=== PATIENT | female | born 1935 | race Caucasian/White ===

== ENCOUNTER 2024-01-04 19:45 | Emergency (ER) | payer OTHER ==
[2024-01-04 19:53] VITALS: BP 129/68; PULSE 70; RESP 18; TEMP 97.7; BMI 21.4
[2024-01-04 23:55] LABS: BASO % 0.7 % (0-2.0); EOS % 1.7 % (0-4.5); HEMATOCRIT 28.4 % (32.4-45.2); HEMOGLOBIN 9.6 GM/dL (10.7-15.3); LYMPH % 10.2 % (8-40); MCH 28.1 pg (25.7-33.7); MCHC 33.7 g/dl (32.0-36.0); MEAN CELL VOLUME 83.2 fl (80-96); MEAN PLT VOLUME 7.3 fl (7.5-11.1); MONO % 8.9 % (3.8-10.2); NEUT % 78.5 % (42.8-82.8); PLATELET COUNT 388 10^3/uL (134-434); RBC 3.42 M/mm3 (3.60-5.2); RDW 14.6 % (11.6-15.6); WHITE BLOOD COUNT 16.3 K/mm3 (4.0-10.0)
[2024-01-05 00:18] LABS: POTASSIUM 4.4 mmol/L (3.5-5.1)
[2024-01-05 00:20] LABS: ALBUMIN 2.7 g/dl (3.4-5.0); BLOOD UREA NITROGEN 20.2 mg/dL (7-18)
[2024-01-05 00:23] LABS: CREATININE 1.1 mg/dL (0.55-1.3)
[2024-01-05 00:25] LABS: BILIRUBIN,TOTAL 0.4 mg/dL (0.2-1); TOT PROT 7.2 g/dl (6.4-8.2)
[2024-01-05 00:28] LABS: N-TERMINAL BNP 1309.9 pg/ml (5-450)
== END 2024-01-05 01:17 | disposition home or self-care (01) ==
LOC: JER 19:45
DX: R53.1 Weakness (principal); M79.89 Other specified soft tissue disorders; R23.1 Pallor
CPT/HCPCS: 36415; 80053; 83880; 84484; 85025; 93970-TC; 99284-25

== ENCOUNTER 2024-01-17 23:59 | Inpatient (IN) | payer OTHER ==
[2024-01-18 01:53] LABS: BASO % 0.5 % (0-2.0); EOS % 1.7 % (0-4.5); HEMATOCRIT 25.7 % (32.4-45.2); HEMOGLOBIN 8.6 GM/dL (10.7-15.3); LYMPH % 9.1 % (8-40); MCHC 33.6 g/dl (32.0-36.0); MEAN CELL VOLUME 83.3 fl (80-96); MEAN PLT VOLUME 7.6 fl (7.5-11.1); NEUT % 80.7 % (42.8-82.8); PLATELET COUNT 324 10^3/uL (134-434); RBC 3.08 M/mm3 (3.60-5.2); RDW 14.9 % (11.6-15.6); WHITE BLOOD COUNT 14.2 K/mm3 (4.0-10.0)
[2024-01-18 02:13] LABS: POTASSIUM 4.6 mmol/L (3.5-5.1)
[2024-01-18 02:15] LABS: ALBUMIN 2.5 g/dl (3.4-5.0); BLOOD UREA NITROGEN 24.8 mg/dL (7-18); CALCIUM 9.1 mg/dL (8.5-10.1)
[2024-01-18 02:18] LABS: CREATININE 1.5 mg/dL (0.55-1.3)
[2024-01-18 02:20] LABS: BILIRUBIN,TOTAL 0.3 mg/dL (0.2-1); TOT PROT 6.5 g/dl (6.4-8.2)
[2024-01-18] MEDS ORDERED: FUROSEMIDE 40 MG/4 ML INJECTABLE VIAL ONE ×3 (02:48→15:27)
[2024-01-18] MEDS: FUROSEMIDE 40 MG/4 ML INJECTABLE VIAL IVPUSH ONE (02:57)
[2024-01-18 03:42] LABS: EPI CELLS 1 /uL (0-25.1); HYALINE CASTS 1 /uL (0-3.1); PH,URINE 5.5 (5.0-8.0); URINE APPEARANCE CLOUDY; URINE BACTERIA 1099 /uL (0-1359); URINE BILIRUBIN NEGATIVE (NEGATIVE); URINE COLOR YELLOW; URINE GLUCOSE (UA) NEGATIVE (NEGATIVE); URINE KETONE NEGATIVE (NEGATIVE); URINE LEUK ESTERASE 3+ (NEGATIVE); URINE NITRITE NEGATIVE (NEGATIVE); URINE PROTEIN 2+ (NEGATIVE); URINE RBC 38 /uL (0-23.9); URINE UROBILINOGEN 0.2 mg/dL (0.2-1.0); URINE WBC 910 /uL (0-25.8)
[2024-01-18] MEDS ORDERED: CEFTRIAXONE 1 GM/50 ML BAG ONE ×2 (04:14→10:33)
[2024-01-18 07:47] LABS: BASO % 0.6 % (0-2.0); EOS % 1.9 % (0-4.5); HEMATOCRIT 26.5 % (32.4-45.2); LYMPH % 9.1 % (8-40); MCH 28.2 pg (25.7-33.7); MCHC 34.1 g/dl (32.0-36.0); MEAN CELL VOLUME 82.6 fl (80-96); MEAN PLT VOLUME 7.6 fl (7.5-11.1); MONO % 7.5 % (3.8-10.2); NEUT % 80.9 % (42.8-82.8); PLATELET COUNT 325 10^3/uL (134-434); RDW 14.9 % (11.6-15.6); RETICULOCYTES 0.79 % (0.5-1.5); WHITE BLOOD COUNT 12.3 K/mm3 (4.0-10.0)
[2024-01-18 07:55] LABS: POTASSIUM 4.2 mmol/L (3.5-5.1)
[2024-01-18] MEDS: FUROSEMIDE 40 MG/4 ML INJECTABLE VIAL IVPUSH SCH (08:01)
[2024-01-18 08:04] LABS: ALBUMIN 2.5 g/dl (3.4-5.0); MAGNESIUM 1.9 mg/dL (1.8-2.4)
[2024-01-18 08:05] LABS: BLOOD UREA NITROGEN 22.4 mg/dL (7-18)
[2024-01-18 08:07] LABS: CREATININE 1.3 mg/dL (0.55-1.3); PHOSPHOROUS 3.1 mg/dL (2.5-4.9)
[2024-01-18 08:09] LABS: BILIRUBIN,TOTAL 0.4 mg/dL (0.2-1); TOT PROT 6.5 g/dl (6.4-8.2)
[2024-01-18] MEDS ORDERED: FUROSEMIDE 40 MG/4 ML INJECTABLE VIAL IVPUSH SCH (10:00)
[2024-01-18] MEDS ORDERED: METOPROLOL TARTRATE 25 MG TABLET (FP) ONE (10:33)
[2024-01-18] MEDS: CEFTRIAXONE 1 GM in DEXTROSE 5%-WATER - 50 ML IVPB SCH (11:12)
[2024-01-18] MEDS: METOPROLOL TARTRATE 25 MG TABLET (FP) PO SCH (11:12)
[2024-01-18] MEDS ORDERED: ONDANSETRON 4 MG/2 ML VIAL IVPUSH PRN (17:45)
[2024-01-19 09:50] LABS: HEMATOCRIT 28.7 % (32.4-45.2); HEMOGLOBIN 9.6 GM/dL (10.7-15.3); MCH 27.7 pg (25.7-33.7); MCHC 33.5 g/dl (32.0-36.0); MEAN CELL VOLUME 82.7 fl (80-96); MEAN PLT VOLUME 7.3 fl (7.5-11.1); PLATELET COUNT 337 10^3/uL (134-434); RBC 3.47 M/mm3 (3.60-5.2); RDW 15.1 % (11.6-15.6); WHITE BLOOD COUNT 14.1 K/mm3 (4.0-10.0)
[2024-01-19 10:14] LABS: POTASSIUM 3.2 mmol/L (3.5-5.1)
[2024-01-19 10:25] LABS: BLOOD UREA NITROGEN 20.5 mg/dL (7-18)
[2024-01-19 10:26] LABS: MAGNESIUM 1.9 mg/dL (1.8-2.4)
[2024-01-19 10:28] LABS: CREATININE 1.3 mg/dL (0.55-1.3); PHOSPHOROUS 3.2 mg/dL (2.5-4.9)
[2024-01-19] MEDS: POTASSIUM CHLORIDE TABS 20 MEQ TABLET.ER (FP) PO ONE (17:59)
[2024-01-19] MEDS: NAPH,MB-DB/K PH,MBDB POWDER PACKET PO ONE (19:06)
[2024-01-20 09:23] LABS: HEMATOCRIT 28.3 % (32.4-45.2); HEMOGLOBIN 9.5 GM/dL (10.7-15.3); MCH 27.7 pg (25.7-33.7); MCHC 33.5 g/dl (32.0-36.0); MEAN CELL VOLUME 82.7 fl (80-96); MEAN PLT VOLUME 7.4 fl (7.5-11.1); PLATELET COUNT 328 10^3/uL (134-434); RBC 3.42 M/mm3 (3.60-5.2); WHITE BLOOD COUNT 11.6 K/mm3 (4.0-10.0)
[2024-01-20 09:33] LABS: POTASSIUM 3.4 mmol/L (3.5-5.1)
[2024-01-20 09:38] LABS: CALCIUM 8.6 mg/dL (8.5-10.1)
[2024-01-20 09:39] LABS: ALBUMIN 2.4 g/dl (3.4-5.0); BLOOD UREA NITROGEN 22.4 mg/dL (7-18); MAGNESIUM 1.9 mg/dL (1.8-2.4)
[2024-01-20 09:42] LABS: CREATININE 1.2 mg/dL (0.55-1.3); PHOSPHOROUS 3.3 mg/dL (2.5-4.9)
[2024-01-20 09:43] LABS: BILIRUBIN,TOTAL 0.5 mg/dL (0.2-1)
[2024-01-20 09:44] LABS: TOT PROT 6.5 g/dl (6.4-8.2)
[2024-01-20] MEDS: POTASSIUM CHLORIDE TABS 20 MEQ TABLET.ER (FP) PO ONE (16:08)
[2024-01-21 09:49] LABS: HEMATOCRIT 27.8 % (32.4-45.2); HEMOGLOBIN 9.3 GM/dL (10.7-15.3); MCH 27.7 pg (25.7-33.7); MCHC 33.5 g/dl (32.0-36.0); MEAN CELL VOLUME 82.9 fl (80-96); MEAN PLT VOLUME 7.7 fl (7.5-11.1); PLATELET COUNT 327 10^3/uL (134-434); RBC 3.35 M/mm3 (3.60-5.2); WHITE BLOOD COUNT 14.3 K/mm3 (4.0-10.0)
[2024-01-21 10:37] LABS: POTASSIUM 3.6 mmol/L (3.5-5.1)
[2024-01-21 10:42] LABS: ALBUMIN 2.4 g/dl (3.4-5.0); BLOOD UREA NITROGEN 21.5 mg/dL (7-18); CALCIUM 8.4 mg/dL (8.5-10.1)
[2024-01-21 10:44] LABS: MAGNESIUM 1.7 mg/dL (1.8-2.4)
[2024-01-21 10:47] LABS: CREATININE 1.2 mg/dL (0.55-1.3); PHOSPHOROUS 2.8 mg/dL (2.5-4.9)
[2024-01-21 10:48] LABS: BILIRUBIN,TOTAL 0.4 mg/dL (0.2-1)
[2024-01-21 10:49] LABS: TOT PROT 6.6 g/dl (6.4-8.2)
[2024-01-21] MEDS ORDERED: PIPERACILLIN/TAZOB 2.25 GM 2.25 GM in DEXTROSE 5%-WATER - 50 ML IVPB SCH (19:45)
[2024-01-21] MEDS: PIPERACILLIN/TAZOB 2.25 GM 2.25 GM in DEXTROSE 5%-WATER - 50 ML IVPB SCH (20:09)
[2024-01-21] MEDS: MAGNESIUM 1GM/D5W - 1 GM/100 ML IVPB IVPB ONE (20:53)
[2024-01-22 10:16] LABS: HEMATOCRIT 26.8 % (32.4-45.2); HEMOGLOBIN 8.9 GM/dL (10.7-15.3); MCHC 33.4 g/dl (32.0-36.0); MEAN CELL VOLUME 83.7 fl (80-96); MEAN PLT VOLUME 7.6 fl (7.5-11.1); PLATELET COUNT 308 10^3/uL (134-434); RDW 15.1 % (11.6-15.6); WHITE BLOOD COUNT 13.7 K/mm3 (4.0-10.0)
[2024-01-22 10:21] LABS: POTASSIUM 3.3 mmol/L (3.5-5.1)
[2024-01-22 10:26] LABS: ALBUMIN 2.2 g/dl (3.4-5.0); BLOOD UREA NITROGEN 21.2 mg/dL (7-18); CALCIUM 8.6 mg/dL (8.5-10.1); MAGNESIUM 2.3 mg/dL (1.8-2.4)
[2024-01-22 10:30] LABS: CREATININE 1.4 mg/dL (0.55-1.3); PHOSPHOROUS 3.1 mg/dL (2.5-4.9)
[2024-01-22 10:32] LABS: BILIRUBIN,TOTAL 0.3 mg/dL (0.2-1)
[2024-01-22 10:34] LABS: TOT PROT 5.9 g/dl (6.4-8.2)
[2024-01-22] MEDS: LIDOCAINE 4% PATCH TP SCH (11:50)
[2024-01-22] MEDS: PIPERACILLIN/TAZOB 3.375 GM 3.375 GM in DEXTROSE 5%-WATER - 50 ML IVPB SCH (17:21)
[2024-01-22] MEDS: IRON SUCROSE INJECTION 100 MG in SODIUM CHLORIDE 95 ML IVPB ONE (18:21)
[2024-01-22] MEDS: POTASSIUM CHLORIDE TABS 20 MEQ TABLET.ER (FP) PO ONE (18:34)
[2024-01-22] MEDS: LIDOCAINE PATCH REMOVAL MC SCH (21:08)
[2024-01-23 08:45] LABS: HEMATOCRIT 27.4 % (32.4-45.2); MCH 27.7 pg (25.7-33.7); MCHC 32.9 g/dl (32.0-36.0); MEAN PLT VOLUME 7.4 fl (7.5-11.1); PLATELET COUNT 332 10^3/uL (134-434); RBC 3.26 M/mm3 (3.60-5.2); RDW 15.2 % (11.6-15.6); WHITE BLOOD COUNT 14.6 K/mm3 (4.0-10.0)
[2024-01-23 08:56] LABS: POTASSIUM 4.4 mmol/L (3.5-5.1)
[2024-01-23 09:04] LABS: ALBUMIN 2.2 g/dl (3.4-5.0)
[2024-01-23 09:05] LABS: BLOOD UREA NITROGEN 21.4 mg/dL (7-18); MAGNESIUM 2.5 mg/dL (1.8-2.4)
[2024-01-23 09:07] LABS: CREATININE 1.5 mg/dL (0.55-1.3); PHOSPHOROUS 3.6 mg/dL (2.5-4.9)
[2024-01-23 09:08] LABS: BILIRUBIN,TOTAL 0.4 mg/dL (0.2-1)
[2024-01-24 10:03] LABS: BASO % 0.6 % (0-2.0); HEMATOCRIT 27.3 % (32.4-45.2); HEMOGLOBIN 9.1 GM/dL (10.7-15.3); LYMPH % 11.8 % (8-40); MCH 27.8 pg (25.7-33.7); MCHC 33.4 g/dl (32.0-36.0); MEAN CELL VOLUME 83.4 fl (80-96); MEAN PLT VOLUME 7.6 fl (7.5-11.1); MONO % 8.5 % (3.8-10.2); NEUT % 76.1 % (42.8-82.8); PLATELET COUNT 335 10^3/uL (134-434); RBC 3.28 M/mm3 (3.60-5.2); RDW 15.8 % (11.6-15.6); WHITE BLOOD COUNT 12.7 K/mm3 (4.0-10.0)
[2024-01-24 10:23] LABS: POTASSIUM 4.4 mmol/L (3.5-5.1)
[2024-01-24 10:28] LABS: CALCIUM 8.7 mg/dL (8.5-10.1)
[2024-01-24 10:29] LABS: ALBUMIN 2.2 g/dl (3.4-5.0)
[2024-01-24 10:32] LABS: CREATININE 1.5 mg/dL (0.55-1.3)
[2024-01-24 10:34] LABS: BILIRUBIN,TOTAL 0.4 mg/dL (0.2-1); TOT PROT 6.4 g/dl (6.4-8.2)
[2024-01-24 16:06] LABS: URINE APPEARANCE TURBID; URINE COLOR YELLOW
[2024-01-24 16:07] LABS: URINE BILIRUBIN NEGATIVE (NEGATIVE); URINE GLUCOSE (UA) NEGATIVE (NEGATIVE); URINE KETONE NEGATIVE (NEGATIVE); URINE LEUK ESTERASE 4+ (NEGATIVE); URINE NITRITE NEGATIVE (NEGATIVE); URINE PROTEIN 1+ (NEGATIVE); URINE UROBILINOGEN 0.2 mg/dL (0.2-1.0)
[2024-01-24] MEDS: HEPARIN NA (PORCINE) 5,000 UNITS/ML 1ML VIAL SQ SCH (22:24)
[2024-01-25 09:48] LABS: HEMATOCRIT 29.7 % (32.4-45.2); HEMOGLOBIN 9.7 GM/dL (10.7-15.3); MCH 27.3 pg (25.7-33.7); MCHC 32.6 g/dl (32.0-36.0); MEAN CELL VOLUME 83.8 fl (80-96); MEAN PLT VOLUME 7.4 fl (7.5-11.1); PLATELET COUNT 390 10^3/uL (134-434); RBC 3.54 M/mm3 (3.60-5.2); RDW 15.6 % (11.6-15.6); WHITE BLOOD COUNT 15.1 K/mm3 (4.0-10.0)
[2024-01-25 10:16] LABS: POTASSIUM 4.4 mmol/L (3.5-5.1)
[2024-01-25 10:18] LABS: ALBUMIN 2.4 g/dl (3.4-5.0); BLOOD UREA NITROGEN 22.3 mg/dL (7-18); CALCIUM 9.1 mg/dL (8.5-10.1)
[2024-01-25 10:21] LABS: CREATININE 1.4 mg/dL (0.55-1.3)
[2024-01-25 10:23] LABS: BILIRUBIN,TOTAL 0.4 mg/dL (0.2-1); TOT PROT 6.8 g/dl (6.4-8.2)
[2024-01-25 14:24] VITALS: BMI 19.1
[2024-01-25] MEDS: SODIUM CHLORIDE 1,000 ML IV SCH (15:15)
[2024-01-25] MEDS: ACETAMINOPHEN 500 MG TABLET (FP) PO PRN (21:21)
[2024-01-25] MEDS: MELATONIN 5 MG TABLETS PO PRN (21:22)
[2024-01-26] MEDS ORDERED: SODIUM CHLORIDE 500 ML IV PRN (08:29)
[2024-01-26 09:46] LABS: HEMATOCRIT 27.8 % (32.4-45.2); HEMOGLOBIN 9.3 GM/dL (10.7-15.3); MCH 28.3 pg (25.7-33.7); MCHC 33.5 g/dl (32.0-36.0); MEAN CELL VOLUME 84.3 fl (80-96); MEAN PLT VOLUME 7.6 fl (7.5-11.1); PLATELET COUNT 340 10^3/uL (134-434); RBC 3.29 M/mm3 (3.60-5.2); RDW 16.2 % (11.6-15.6); WHITE BLOOD COUNT 10.7 K/mm3 (4.0-10.0)
[2024-01-26 09:58] LABS: POTASSIUM 3.9 mmol/L (3.5-5.1)
[2024-01-26 10:06] LABS: ALBUMIN 2.1 g/dl (3.4-5.0); BLOOD UREA NITROGEN 20.6 mg/dL (7-18); CALCIUM 8.5 mg/dL (8.5-10.1)
[2024-01-26 10:07] LABS: MAGNESIUM 2.3 mg/dL (1.8-2.4)
[2024-01-26 10:10] LABS: PHOSPHOROUS 3.6 mg/dL (2.5-4.9)
[2024-01-26 10:11] LABS: BILIRUBIN,TOTAL 0.4 mg/dL (0.2-1); TOT PROT 5.8 g/dl (6.4-8.2)
[2024-01-26 10:19] LABS: CREATININE 1.2 mg/dL (0.55-1.3)
[2024-01-27 10:25] LABS: HEMATOCRIT 25.5 % (32.4-45.2); HEMOGLOBIN 8.4 GM/dL (10.7-15.3); MCH 27.7 pg (25.7-33.7); MEAN PLT VOLUME 7.2 fl (7.5-11.1); PLATELET COUNT 326 10^3/uL (134-434); RBC 3.04 M/mm3 (3.60-5.2); RDW 16.3 % (11.6-15.6); WHITE BLOOD COUNT 14.4 K/mm3 (4.0-10.0)
[2024-01-27 10:44] LABS: POTASSIUM 4.2 mmol/L (3.5-5.1)
[2024-01-27 10:55] LABS: BLOOD UREA NITROGEN 18.2 mg/dL (7-18)
[2024-01-27 10:56] LABS: CALCIUM 8.5 mg/dL (8.5-10.1)
[2024-01-27 10:57] LABS: MAGNESIUM 2.1 mg/dL (1.8-2.4)
[2024-01-27 10:58] LABS: CREATININE 0.9 mg/dL (0.55-1.3); PHOSPHOROUS 2.9 mg/dL (2.5-4.9)
[2024-01-27 11:00] LABS: BILIRUBIN,TOTAL 0.3 mg/dL (0.2-1); TOT PROT 5.6 g/dl (6.4-8.2)
[2024-01-27] MEDS ORDERED: ONDANSETRON 4 MG/2 ML VIAL ONE ×2 (15:57→16:11)
[2024-01-27] MEDS ORDERED: ACETAMINOPHEN INJECTION 100 ML IVPB ONE (16:00)
[2024-01-27] MEDS ORDERED: MIDAZOLAM HCL 2 MG/2 ML SINGLE DOSE VIAL ONE (16:15)
[2024-01-27] MEDS ORDERED: SUCCINYLCHOLINE CHLORIDE 200 MG/10 ML SYRINGE ONE (16:20)
[2024-01-27] MEDS ORDERED: LACTATED RINGERS SOLUTION 1,000 ML IV SCH (17:00)
[2024-01-27] MEDS ORDERED: ONDANSETRON 4 MG/2 ML VIAL IVPUSH PRN (18:04)
[2024-01-27] MEDS ORDERED: SODIUM CHLORIDE 500 ML IV PRN (18:04)
[2024-01-27] MEDS: LACTATED RINGERS SOLUTION 1,000 ML IV SCH (18:10)
[2024-01-27 18:37] VITALS: RESP 18
[2024-01-27] MEDS: LIDOCAINE PATCH REMOVAL MC SCH (21:33)
[2024-01-27] MEDS: METOPROLOL TARTRATE 25 MG TABLET (FP) PO SCH (21:33)
[2024-01-27] MEDS: ACETAMINOPHEN 500 MG TABLET (FP) PO PRN (21:35)
[2024-01-27] MEDS: MELATONIN 5 MG TABLETS PO PRN (21:35)
[2024-01-27] MEDS ORDERED: LIDOCAINE PATCH REMOVAL MC SCH (22:00)
[2024-01-28] MEDS: PIPERACILLIN/TAZOB 3.375 GM 3.375 GM in DEXTROSE 5%-WATER - 50 ML IVPB SCH (02:26)
[2024-01-28 08:29] VITALS: BP 131/62; PULSE 78; TEMP 97.9
[2024-01-28] MEDS: LIDOCAINE 4% PATCH TP SCH (09:17)
[2024-01-28 10:24] LABS: HEMATOCRIT 25.4 % (32.4-45.2); HEMOGLOBIN 8.2 GM/dL (10.7-15.3); MCH 27.8 pg (25.7-33.7); MCHC 32.2 g/dl (32.0-36.0); MEAN CELL VOLUME 86.2 fl (80-96); MEAN PLT VOLUME 7.7 fl (7.5-11.1); PLATELET COUNT 317 10^3/uL (134-434); RBC 2.95 M/mm3 (3.60-5.2); RDW 16.2 % (11.6-15.6)
[2024-01-28 10:34] LABS: POTASSIUM 4.7 mmol/L (3.5-5.1)
[2024-01-28 10:36] LABS: ALBUMIN 1.9 g/dl (3.4-5.0); BLOOD UREA NITROGEN 15.3 mg/dL (7-18); CALCIUM 8.4 mg/dL (8.5-10.1); MAGNESIUM 2.1 mg/dL (1.8-2.4)
[2024-01-28 10:39] LABS: CREATININE 1.1 mg/dL (0.55-1.3)
[2024-01-28 10:40] LABS: PHOSPHOROUS 3.4 mg/dL (2.5-4.9)
[2024-01-28 10:41] LABS: BILIRUBIN,TOTAL 0.4 mg/dL (0.2-1); TOT PROT 5.5 g/dl (6.4-8.2)
[2024-01-28] MEDS: HEPARIN NA (PORCINE) 5,000 UNITS/ML 1ML VIAL SQ SCH (13:41)
== END 2024-01-28 15:00 | disposition home or self-care (01) | DRG 749 ==
LOC: JER 23:59 → JERBED 01-18 04:29 → J6S 01-18 16:17
PROVIDERS: ADMIT Internal Medicine; ATTEND Internal Medicine
PROC: 0TBB8ZX Excision of Bladder, Via Natural or Artificial Opening Endoscopic, Diagnostic (ICD-10-PCS; 2024-01-27)
PROC: 0T9B80Z Drainage of Bladder with Drainage Device, Via Natural or Artificial Opening Endoscopic (ICD-10-PCS; principal; 2024-01-27 16:00)
DX: C53.9 Malignant neoplasm of cervix uteri, unspecified (principal); C77.9 Secondary and unspecified malignant neoplasm of lymph node, unspecified; E87.1 Hypo-osmolality and hyponatremia; N17.9 Acute kidney failure, unspecified; I50.32 Chronic diastolic (congestive) heart failure; N13.6 Pyonephrosis; I11.0 Hypertensive heart disease with heart failure; M81.0 Age-related osteoporosis without current pathological fracture; R31.9 Hematuria, unspecified; R33.9 Retention of urine, unspecified; I87.2 Venous insufficiency (chronic) (peripheral); I45.10 Unspecified right bundle-branch block; D64.9 Anemia, unspecified; R10.11 Right upper quadrant pain; E83.42 Hypomagnesemia; D50.0 Iron deficiency anemia secondary to blood loss (chronic)
CPT/HCPCS: 36415; 51600; 71045-TC-FY; 72196-TC; 74176-TC; 74177-TC; 76775-TC; 76856-TC; 80048; 80053; 81003; 81015; 82272; 82607; 82728; 83540; 83550; 83735; 83880; 84100; 84443; 84466; 84484; 85025; 85027; 85045; 87040; 87070; 87076; 87086; 87205; 88305-TC; 88341-TC; 93005; 93010; 93306-TC; 93971-TC; 94760; 97116-GP; 97161-GP; 99285-25; J0131; J1644; Q9967

== ENCOUNTER 2024-03-14 11:33 | Day surgery (SDC) | payer OTHER ==
[2024-03-14 12:32] LABS: BASO % 0.7 % (0-2.0); EOS % 0.3 % (0-4.5); HEMATOCRIT 27.6 % (32.4-45.2); HEMOGLOBIN 8.9 GM/dL (10.7-15.3); LYMPH % 6.1 % (8-40); MCH 27.7 pg (25.7-33.7); MCHC 32.3 g/dl (32.0-36.0); MEAN CELL VOLUME 85.9 fl (80-96); MEAN PLT VOLUME 7.3 fl (7.5-11.1); MONO % 5.2 % (3.8-10.2); NEUT % 87.7 % (42.8-82.8); PLATELET COUNT 332 10^3/uL (134-434); RBC 3.21 M/mm3 (3.60-5.2); RDW 15.7 % (11.6-15.6); WHITE BLOOD COUNT 16.5 K/mm3 (4.0-10.0)
[2024-03-14 13:05] LABS: CHLORIDE 97 mmol/L (98-107); SODIUM 129 mmol/L (136-145)
[2024-03-14 13:07] LABS: ALBUMIN 2.6 g/dl (3.4-5.0); ANION GAP 7 mmol/L (4-13); BLOOD UREA NITROGEN 17.7 mg/dL (7-18); CALCIUM 8.9 mg/dL (8.5-10.1); CO2 25 mmol/L (21-32); GLUCOSE,RANDOM 98 mg/dL (74-106); MAGNESIUM 2.2 mg/dL (1.8-2.4)
[2024-03-14 13:10] LABS: CREATININE 1.4 mg/dL (0.55-1.3); SGOT/AST 14 U/L (15-37); SGPT/ALT 11 U/L (13-61)
[2024-03-14 13:12] LABS: BILIRUBIN,TOTAL 0.3 mg/dL (0.2-1); TOT PROT 6.5 g/dl (6.4-8.2)
[2024-03-14 13:13] LABS: ALK PHOS 82 U/L (45-117)
[2024-03-14] MEDS: SODIUM CHLORIDE 250 ML IV ONE (14:31)
[2024-03-14] MEDS: DEXAMETHASONE SODIUM PHOSPHATE 10 MG in SODIUM CHLORIDE 50 ML IVPB ONE (14:55)
[2024-03-14] MEDS: GRANISETRON HCL/PF 1 MG in SODIUM CHLORIDE 50 ML IVPB ONE (15:13)
[2024-03-14] MEDS: [UNRECOGNIZED DRUG - OTHER] IVPB ONE (15:30)
[2024-03-14] MEDS: CISPLATIN IVPB ONE (15:30)
[2024-03-14] MEDS: POTASSIUM CHLORIDE IVPB ONE (15:30)
[2024-03-14] MEDS: MANNITOL IVPB ONE (15:30)
[2024-03-14 17:25] VITALS: BP 103/40; PULSE 67; RESP 16
[2024-03-14 18:07] VITALS: TEMP 97.4
== END 2024-03-14 16:45 | disposition home or self-care (01) ==
LOC: JONCCHEMO 11:33
PROVIDERS: ATTEND Internal Medicine Hematology & Oncology
DX: Z51.11 Encounter for antineoplastic chemotherapy (principal); C53.9 Malignant neoplasm of cervix uteri, unspecified
CPT/HCPCS: 36415; 80053; 83735; 85025; 93970-TC; 96413

== ENCOUNTER 2024-03-21 09:12 | Day surgery (SDC) | payer OTHER ==
[2024-03-21 09:14] LABS: BASO % 0.5 % (0-2.0); EOS % 2.4 % (0-4.5); HEMATOCRIT 26.1 % (32.4-45.2); HEMOGLOBIN 8.5 GM/dL (10.7-15.3); LYMPH % 10.8 % (8-40); MCH 28.1 pg (25.7-33.7); MCHC 32.7 g/dl (32.0-36.0); MEAN CELL VOLUME 85.9 fl (80-96); MEAN PLT VOLUME 6.8 fl (7.5-11.1); MONO % 9.3 % (3.8-10.2); PLATELET COUNT 304 10^3/uL (134-434); RBC 3.03 M/mm3 (3.60-5.2); RDW 14.9 % (11.6-15.6); WHITE BLOOD COUNT 6.5 K/mm3 (4.0-10.0)
[2024-03-21 09:31] LABS: CHLORIDE 94 mmol/L (98-107); POTASSIUM 4.8 mmol/L (3.5-5.1); SODIUM 126 mmol/L (136-145)
[2024-03-21 09:33] LABS: ALBUMIN 2.5 g/dl (3.4-5.0); ANION GAP 5 mmol/L (4-13); BLOOD UREA NITROGEN 14.5 mg/dL (7-18); CALCIUM 8.6 mg/dL (8.5-10.1); CO2 27 mmol/L (21-32); MAGNESIUM 2.2 mg/dL (1.8-2.4)
[2024-03-21 09:34] LABS: GLUCOSE,RANDOM 90 mg/dL (74-106)
[2024-03-21 09:36] LABS: SGOT/AST 12 U/L (15-37); SGPT/ALT 12 U/L (13-61)
[2024-03-21 09:37] LABS: CREATININE 0.8 mg/dL (0.55-1.3)
[2024-03-21 09:38] LABS: BILIRUBIN,TOTAL 0.3 mg/dL (0.2-1); TOT PROT 6.1 g/dl (6.4-8.2)
[2024-03-21 09:39] LABS: ALK PHOS 74 U/L (45-117)
[2024-03-21] MEDS: SODIUM CHLORIDE 250 ML IV ONE (10:45)
[2024-03-21] MEDS: DEXAMETHASONE SODIUM PHOSPHATE 10 MG in SODIUM CHLORIDE 50 ML IVPB ONE (11:23)
[2024-03-21] MEDS: GRANISETRON HCL/PF 1 MG in SODIUM CHLORIDE 50 ML IVPB ONE (11:57)
[2024-03-21] MEDS: [UNRECOGNIZED DRUG - OTHER] IVPB ONE (12:23)
[2024-03-21] MEDS: POTASSIUM CHLORIDE IVPB ONE (12:23)
[2024-03-21] MEDS: CISPLATIN IVPB ONE (12:23)
[2024-03-21] MEDS: MANNITOL IVPB ONE (12:23)
[2024-03-21 16:20] VITALS: BP 126/36; PULSE 64; RESP 18; TEMP 97.9
== END 2024-03-21 14:00 | disposition home or self-care (01) ==
LOC: JONCCHEMO 09:12 → J7W 09:13 → JONCCHEMO 14:00
PROVIDERS: ATTEND Internal Medicine Hematology & Oncology
DX: Z51.11 Encounter for antineoplastic chemotherapy (principal); C53.9 Malignant neoplasm of cervix uteri, unspecified
CPT/HCPCS: 36415; 80053; 83735; 85025; 96367; 96413

== ENCOUNTER 2024-03-28 08:57 | Day surgery (SDC) | payer OTHER ==
[2024-03-28 09:34] LABS: BASO % 0.3 % (0-2.0); EOS % 6.3 % (0-4.5); HEMATOCRIT 24.9 % (32.4-45.2); HEMOGLOBIN 8.4 GM/dL (10.7-15.3); LYMPH % 15.2 % (8-40); MCH 28.8 pg (25.7-33.7); MCHC 33.8 g/dl (32.0-36.0); MEAN CELL VOLUME 85.2 fl (80-96); MEAN PLT VOLUME 6.7 fl (7.5-11.1); MONO % 12.4 % (3.8-10.2); NEUT % 65.8 % (42.8-82.8); PLATELET COUNT 188 10^3/uL (134-434); RBC 2.92 M/mm3 (3.60-5.2); RDW 15.6 % (11.6-15.6); WHITE BLOOD COUNT 3.2 K/mm3 (4.0-10.0)
[2024-03-28 10:04] LABS: CHLORIDE 100 mmol/L (98-107); POTASSIUM 4.3 mmol/L (3.5-5.1); SODIUM 132 mmol/L (136-145)
[2024-03-28 10:06] LABS: ALBUMIN 2.4 g/dl (3.4-5.0); ANION GAP 5 mmol/L (4-13); BLOOD UREA NITROGEN 9.9 mg/dL (7-18); CO2 27 mmol/L (21-32); GLUCOSE,RANDOM 72 mg/dL (74-106); MAGNESIUM 1.8 mg/dL (1.8-2.4)
[2024-03-28 10:09] LABS: CREATININE 0.8 mg/dL (0.55-1.3); SGOT/AST 15 U/L (15-37); SGPT/ALT 12 U/L (13-61)
[2024-03-28 10:11] LABS: TOT PROT 5.8 g/dl (6.4-8.2)
[2024-03-28 10:13] LABS: ALK PHOS 63 U/L (45-117); BILIRUBIN,TOTAL 0.4 mg/dL (0.2-1)
[2024-03-28] MEDS: SODIUM CHLORIDE 250 ML IV ONE (10:35)
[2024-03-28] MEDS: DEXAMETHASONE SODIUM PHOSPHATE 10 MG in SODIUM CHLORIDE 50 ML IVPB ONE (11:20)
[2024-03-28] MEDS: GRANISETRON HCL/PF 1 MG in SODIUM CHLORIDE 50 ML IVPB ONE (11:39)
[2024-03-28] MEDS: POTASSIUM CHLORIDE IVPB ONE (12:18)
[2024-03-28] MEDS: MANNITOL IVPB ONE (12:18)
[2024-03-28] MEDS: CISPLATIN IVPB ONE (12:18)
[2024-03-28] MEDS: [UNRECOGNIZED DRUG - OTHER] IVPB ONE (12:18)
[2024-03-28 15:34] VITALS: TEMP 97.4
[2024-03-28 15:40] VITALS: BP 129/52; PULSE 72; RESP 18
== END 2024-03-28 13:30 | disposition home or self-care (01) ==
LOC: JONCCHEMO 08:57 → J7W 08:58 → JONCCHEMO 13:30
PROVIDERS: ATTEND Internal Medicine Hematology & Oncology
PROC: 3E03305 Introduction of Other Antineoplastic into Peripheral Vein, Percutaneous Approach (ICD-10-PCS; principal; 2024-03-28)
PROC: 3E033GC Introduction of Other Therapeutic Substance into Peripheral Vein, Percutaneous Approach (ICD-10-PCS; 2024-03-28)
DX: Z51.11 Encounter for antineoplastic chemotherapy (principal); C53.9 Malignant neoplasm of cervix uteri, unspecified; C79.11 Secondary malignant neoplasm of bladder
CPT/HCPCS: 36415; 80053; 83735; 85025; 96365; 96367; 96413

== ENCOUNTER 2024-04-04 09:13 | Day surgery (SDC) | payer OTHER ==
[2024-04-04 09:34] LABS: HEMATOCRIT 25.7 % (32.4-45.2); HEMOGLOBIN 8.6 GM/dL (10.7-15.3); MCH 28.9 pg (25.7-33.7); MCHC 33.3 g/dl (32.0-36.0); MEAN CELL VOLUME 86.8 fl (80-96); MEAN PLT VOLUME 6.9 fl (7.5-11.1); PLATELET COUNT 190 10^3/uL (134-434); RBC 2.96 M/mm3 (3.60-5.2); RDW 16.1 % (11.6-15.6); WHITE BLOOD COUNT 2.1 K/mm3 (4.0-10.0)
[2024-04-04 10:07] LABS: POTASSIUM 3.9 mmol/L (3.5-5.1)
[2024-04-04 10:09] LABS: CALCIUM 8.6 mg/dL (8.5-10.1)
[2024-04-04 10:10] LABS: ALBUMIN 2.6 g/dl (3.4-5.0); BLOOD UREA NITROGEN 10.5 mg/dL (7-18); MAGNESIUM 1.8 mg/dL (1.8-2.4)
[2024-04-04 10:13] LABS: CREATININE 0.8 mg/dL (0.55-1.3)
[2024-04-04 10:14] LABS: BILIRUBIN,TOTAL 0.4 mg/dL (0.2-1)
[2024-04-04 10:15] LABS: ANISOCYTOSIS 0; MACROCYTOSIS 0; TOT PROT 5.6 g/dl (6.4-8.2)
[2024-04-04] MEDS ORDERED: [UNRECOGNIZED DRUG - OTHER] IVPB ONE (10:30)
[2024-04-04] MEDS ORDERED: POTASSIUM CHLORIDE IVPB ONE (10:30)
[2024-04-04] MEDS ORDERED: MANNITOL IVPB ONE (10:30)
[2024-04-04] MEDS ORDERED: CISPLATIN IVPB ONE (10:30)
[2024-04-04] MEDS: SODIUM CHLORIDE 250 ML IV ONE (11:16)
[2024-04-04] MEDS: GRANISETRON HCL/PF 1 MG in SODIUM CHLORIDE 50 ML IVPB ONE (11:17)
[2024-04-04] MEDS: DEXAMETHASONE SODIUM PHOSPHATE 10 MG in SODIUM CHLORIDE 50 ML IVPB ONE (11:51)
[2024-04-04] MEDS: [UNRECOGNIZED DRUG - OTHER] IVPB ONE (12:48)
[2024-04-04] MEDS: POTASSIUM CHLORIDE IVPB ONE (12:48)
[2024-04-04] MEDS: MANNITOL IVPB ONE (12:48)
[2024-04-04] MEDS: CISPLATIN IVPB ONE (12:48)
[2024-04-04 15:36] VITALS: RESP 16; TEMP 97.4
[2024-04-04 15:41] VITALS: BP 118/43; PULSE 72
== END 2024-04-04 15:45 | disposition home or self-care (01) ==
LOC: JONCCHEMO 09:13 → J7W 09:14 → JONCCHEMO 15:45
PROVIDERS: ATTEND Internal Medicine Hematology & Oncology
DX: Z51.11 Encounter for antineoplastic chemotherapy (principal); C53.9 Malignant neoplasm of cervix uteri, unspecified; C79.11 Secondary malignant neoplasm of bladder
CPT/HCPCS: 36415; 80053; 83735; 85025; 96375; 96413; 96415

== ENCOUNTER 2024-04-08 09:55 | Inpatient (IN) | payer OTHER ==
[2024-04-08 11:13] LABS: VENOUS BASE EXCESS -1.8 mmol/L (-2-2); VENOUS O2 SATURATION 56.8 % (70-80); VENOUS PCO2 40.6 mmHg (38-52); VENOUS PH 7.375 (7.310-7.410)
[2024-04-08 11:17] LABS: HEMATOCRIT 22.7 % (32.4-45.2); HEMOGLOBIN 7.8 GM/dL (10.7-15.3); MCH 29.6 pg (25.7-33.7); MCHC 34.6 g/dl (32.0-36.0); MEAN CELL VOLUME 85.6 fl (80-96); MEAN PLT VOLUME 6.8 fl (7.5-11.1); PLATELET COUNT 179 10^3/uL (134-434); RBC 2.65 M/mm3 (3.60-5.2); RDW 17.3 % (11.6-15.6)
[2024-04-08 11:24] LABS: INR 1.04 (0.83-1.09); PROTHROMBIN TIME (PATIENT) 11.9 SEC (9.7-13.0); WHITE BLOOD COUNT 1.9 K/mm3 (4.0-10.0)
[2024-04-08 11:26] LABS: EPI CELLS 0 /uL (0-25.1); HYALINE CASTS 1 /uL (0-3.1); PH,URINE 6.5 (5.0-8.0); URINE APPEARANCE CLEAR; URINE BACTERIA 5317 /uL (0-1359); URINE BILIRUBIN NEGATIVE (NEGATIVE); URINE COLOR YELLOW; URINE GLUCOSE (UA) NEGATIVE (NEGATIVE); URINE KETONE TRACE (NEGATIVE); URINE LEUK ESTERASE 2+ (NEGATIVE); URINE NITRITE POSITIVE (NEGATIVE); URINE PROTEIN TRACE (NEGATIVE); URINE RBC 247 /uL (0-23.9); URINE UROBILINOGEN 0.2 mg/dL (0.2-1.0); URINE WBC 115 /uL (0-25.8)
[2024-04-08 11:27] LABS: ACTIVATED PTT 22.6 SECONDS (25.2-36.5)
[2024-04-08 11:40] LABS: CHLORIDE 105 mmol/L (98-107); SODIUM 137 mmol/L (136-145)
[2024-04-08 11:42] LABS: ALBUMIN 2.4 g/dl (3.4-5.0); BLOOD UREA NITROGEN 7.5 mg/dL (7-18); CALCIUM 7.6 mg/dL (8.5-10.1); CO2 27 mmol/L (21-32)
[2024-04-08 11:43] LABS: GLUCOSE,RANDOM 110 mg/dL (74-106)
[2024-04-08 11:45] LABS: SGOT/AST 16 U/L (15-37); SGPT/ALT 14 U/L (13-61)
[2024-04-08] MEDS ORDERED: PIPERACILLIN/TAZOB 4.5 GM 4.5 GM in DEXTROSE 5%-WATER 100 ML IVPB SCH (11:45)
[2024-04-08 11:46] LABS: CREATININE 0.8 mg/dL (0.55-1.3)
[2024-04-08 11:47] LABS: BILIRUBIN,TOTAL 0.4 mg/dL (0.2-1); TOT PROT 5.3 g/dl (6.4-8.2)
[2024-04-08 11:48] LABS: ALK PHOS 61 U/L (45-117); ANION GAP 5 mmol/L (4-13); POTASSIUM 2.9 mmol/L (3.5-5.1)
[2024-04-08 11:51] LABS: ANISOCYTOSIS 0; HELMET CELLS 0; HOWELL-JOLLY BODIES 0; MACROCYTOSIS 0; OVALOCYTE 0; ROULEAU 0; SICKELED CELLS 0; TARGET CELLS 0; TEAR DROP CELLS 0; TOXIC GRANULATION 0
[2024-04-08] MEDS ORDERED: PIPERACILLIN/TAZOB 4.5 GM 4.5 GM/100 ML BAG IVPB ONE (11:58)
[2024-04-08] MEDS: PIPERACILLIN/TAZOB 4.5 GM 4.5 GM in DEXTROSE 5%-WATER 100 ML IVPB SCH (12:11)
[2024-04-08] MEDS ORDERED: KCL 10 MEQ IVPB 10 MEQ/100 ML INFUS.BAG IVPB ONE ×2 (13:28→14:32)
[2024-04-08] MEDS: KCL 10 MEQ IVPB 10 MEQ/100 ML INFUS.BAG IVPB SCH (13:42)
[2024-04-08] MEDS ORDERED: POTASSIUM CHLORIDE ORAL LIQUID 20 MEQ/15 ML ONE (13:44)
[2024-04-08] MEDS: POTASSIUM CHLORIDE ORAL LIQUID 20 MEQ/15 ML PO ONE (13:47)
[2024-04-08] MEDS: KCL 20 MEQ PREMIX BAG 20 MEQ/100 ML INFUS.BAG IVPB ONE (13:48)
[2024-04-08 15:49] LABS: MAGNESIUM 1.6 mg/dL (1.8-2.4)
[2024-04-08] MEDS: MAGNESIUM 2GM/50ML STERILE WATER IVPB IVPB ONE (19:23)
[2024-04-08 19:26] LABS: HIV INTERPRETATION NEGATIVE (NEGATIVE)
[2024-04-09 01:15] LABS: POTASSIUM 3.9 mmol/L (3.5-5.1)
[2024-04-09 01:16] LABS: MAGNESIUM 1.8 mg/dL (1.8-2.4)
[2024-04-09 01:19] LABS: CREATININE 0.8 mg/dL (0.55-1.3)
[2024-04-09] MEDS: PIPERACILLIN/TAZOB 2.25 GM 2.25 GM/50 ML BAG IVPB SCH (09:51)
[2024-04-09 10:53] LABS: EOS % 2.6 % (0-4.5); HEMATOCRIT 24.7 % (32.4-45.2); HEMOGLOBIN 8.3 GM/dL (10.7-15.3); LYMPH % 7.4 % (8-40); MCH 29.2 pg (25.7-33.7); MCHC 33.4 g/dl (32.0-36.0); MEAN CELL VOLUME 87.5 fl (80-96); PLATELET COUNT 186 10^3/uL (134-434); RBC 2.83 M/mm3 (3.60-5.2); RDW 17.1 % (11.6-15.6); WHITE BLOOD COUNT 2.6 K/mm3 (4.0-10.0)
[2024-04-09 11:12] LABS: POTASSIUM 3.7 mmol/L (3.5-5.1)
[2024-04-09 11:15] LABS: ALBUMIN 2.2 g/dl (3.4-5.0); BLOOD UREA NITROGEN 5.3 mg/dL (7-18); CALCIUM 7.7 mg/dL (8.5-10.1)
[2024-04-09 11:16] LABS: MAGNESIUM 1.7 mg/dL (1.8-2.4)
[2024-04-09 11:17] LABS: PHOSPHOROUS 2.3 mg/dL (2.5-4.9)
[2024-04-09 11:19] LABS: CREATININE 0.9 mg/dL (0.55-1.3)
[2024-04-09 11:20] LABS: BILIRUBIN,TOTAL 0.5 mg/dL (0.2-1); TOT PROT 5.2 g/dl (6.4-8.2)
[2024-04-09] MEDS: ENOXAPARIN NA (PORCINE) 40 MG/0.4 ML DISP.SYRIN SQ SCH (12:10)
[2024-04-09] MEDS: MAGNESIUM 1GM/D5W 100ML - 100 ML IVPB IVPB ONE (12:20)
[2024-04-09] MEDS: LOPERAMIDE HCL 2 MG CAPSULE PO PRN (12:20)
[2024-04-09] MEDS: POTASSIUM CHLORIDE ORAL LIQUID 20 MEQ/15 ML PO ONE (12:20)
[2024-04-09] MEDS: NAPH,MB-DB/K PH,MBDB POWDER PACKET PO SCH (12:21)
[2024-04-09] MEDS: MAGNESIUM SULF 50% (8.12 MEQ/2 ML-1 GM VIAL) IVPB ONE (12:21)
[2024-04-09] MEDS: SODIUM CHLORIDE 1,000 ML IV SCH (14:57)
[2024-04-10 08:33] LABS: BASO % 0.6 % (0-2.0); EOS % 2.3 % (0-4.5); HEMATOCRIT 25.8 % (32.4-45.2); HEMOGLOBIN 8.7 GM/dL (10.7-15.3); LYMPH % 10.5 % (8-40); MCH 29.7 pg (25.7-33.7); MCHC 33.8 g/dl (32.0-36.0); MEAN CELL VOLUME 87.9 fl (80-96); MEAN PLT VOLUME 7.2 fl (7.5-11.1); MONO % 13.9 % (3.8-10.2); NEUT % 72.7 % (42.8-82.8); PLATELET COUNT 181 10^3/uL (134-434); RBC 2.94 M/mm3 (3.60-5.2); RDW 17.8 % (11.6-15.6); WHITE BLOOD COUNT 2.7 K/mm3 (4.0-10.0)
[2024-04-10 08:46] LABS: POTASSIUM 3.6 mmol/L (3.5-5.1)
[2024-04-10 08:48] LABS: ALBUMIN 2.2 g/dl (3.4-5.0); BLOOD UREA NITROGEN 4.8 mg/dL (7-18); CALCIUM 7.9 mg/dL (8.5-10.1); MAGNESIUM 1.7 mg/dL (1.8-2.4)
[2024-04-10 08:50] LABS: CREATININE 0.7 mg/dL (0.55-1.3)
[2024-04-10 08:52] LABS: PHOSPHOROUS 2.5 mg/dL (2.5-4.9)
[2024-04-10 08:53] LABS: BILIRUBIN,TOTAL 0.4 mg/dL (0.2-1); TOT PROT 5.2 g/dl (6.4-8.2)
[2024-04-10] MEDS: ENOXAPARIN NA (PORCINE) 30 MG/0.3 ML DISP.SYRIN SQ SCH (10:09)
[2024-04-10] MEDS: LOPERAMIDE HCL 2 MG CAPSULE PO SCH (10:09)
[2024-04-10] MEDS: MAGNESIUM 2GM/50ML STERILE WATER IVPB IVPB ONE ×2 (13:26→13:45)
[2024-04-10] MEDS: ZINC OXIDE 20% TOPICAL OINTMENT 30 GM TUBE TP ONE (13:27)
[2024-04-10 15:04] VITALS: BMI 18.7
[2024-04-10] MEDS: CEFTRIAXONE 1 G/50 ML PREMIX 50 ML IVPB SCH (15:14)
[2024-04-10] MEDS: BANATROL PLUS POWDER PACKET PO SCH (21:33)
[2024-04-11 09:34] LABS: BASO % 1.3 % (0-2.0); HEMATOCRIT 22.2 % (32.4-45.2); HEMOGLOBIN 7.9 GM/dL (10.7-15.3); MCH 30.3 pg (25.7-33.7); MCHC 35.3 g/dl (32.0-36.0); MEAN CELL VOLUME 85.8 fl (80-96); MEAN PLT VOLUME 7.2 fl (7.5-11.1); MONO % 13.6 % (3.8-10.2); NEUT % 68.1 % (42.8-82.8); PLATELET COUNT 170 10^3/uL (134-434); RBC 2.59 M/mm3 (3.60-5.2); RDW 18.1 % (11.6-15.6); WHITE BLOOD COUNT 2.2 K/mm3 (4.0-10.0)
[2024-04-11 09:49] LABS: POTASSIUM 3.2 mmol/L (3.5-5.1)
[2024-04-11 09:54] LABS: ALBUMIN 2.1 g/dl (3.4-5.0); BLOOD UREA NITROGEN 3.1 mg/dL (7-18)
[2024-04-11 09:56] LABS: CALCIUM 7.2 mg/dL (8.5-10.1)
[2024-04-11 09:57] LABS: CREATININE 0.7 mg/dL (0.55-1.3)
[2024-04-11 09:58] LABS: BILIRUBIN,TOTAL 0.4 mg/dL (0.2-1); TOT PROT 4.7 g/dl (6.4-8.2)
[2024-04-11] MEDS: POTASSIUM CHLORIDE ORAL LIQUID 20 MEQ/15 ML PO ONE (12:30)
[2024-04-11] MEDS: DIPHENOXYLATE 2.5/ATROPINE.025 1 COMBO TABLET PO PRN (12:48)
[2024-04-12 09:12] LABS: HEMATOCRIT 23.1 % (32.4-45.2); HEMOGLOBIN 7.8 GM/dL (10.7-15.3); MCH 29.3 pg (25.7-33.7); MCHC 33.7 g/dl (32.0-36.0); MEAN CELL VOLUME 86.9 fl (80-96); MEAN PLT VOLUME 7.1 fl (7.5-11.1); PLATELET COUNT 166 10^3/uL (134-434); RBC 2.66 M/mm3 (3.60-5.2); RDW 18.2 % (11.6-15.6)
[2024-04-12 09:20] LABS: WHITE BLOOD COUNT 1.9 K/mm3 (4.0-10.0)
[2024-04-12] MEDS: CEFUROXIME AXETIL 250 MG TABLET PO SCH (09:54)
[2024-04-12 10:57] LABS: ANISOCYTOSIS 0; HELMET CELLS 0; HOWELL-JOLLY BODIES 0; MACROCYTOSIS 0; OVALOCYTE 0; ROULEAU 0; SICKELED CELLS 0; TARGET CELLS 0; TEAR DROP CELLS 0; TOXIC GRANULATION 0
[2024-04-13 08:06] LABS: HEMATOCRIT 22.1 % (32.4-45.2); HEMOGLOBIN 7.4 GM/dL (10.7-15.3); MCH 29.2 pg (25.7-33.7); MCHC 33.3 g/dl (32.0-36.0); MEAN CELL VOLUME 87.6 fl (80-96); MEAN PLT VOLUME 7.2 fl (7.5-11.1); PLATELET COUNT 180 10^3/uL (134-434); RBC 2.52 M/mm3 (3.60-5.2); RDW 19.7 % (11.6-15.6)
[2024-04-13 08:27] LABS: POTASSIUM 3.9 mmol/L (3.5-5.1)
[2024-04-13 08:30] LABS: WHITE BLOOD COUNT 1.9 K/mm3 (4.0-10.0)
[2024-04-13 08:31] LABS: BLOOD UREA NITROGEN 3.8 mg/dL (7-18); CALCIUM 8.2 mg/dL (8.5-10.1)
[2024-04-13 08:32] LABS: MAGNESIUM 1.5 mg/dL (1.8-2.4)
[2024-04-13 08:34] LABS: CREATININE 0.7 mg/dL (0.55-1.3); PHOSPHOROUS 3.1 mg/dL (2.5-4.9)
[2024-04-13] MEDS: MAGNESIUM 2GM/50ML STERILE WATER IVPB IVPB ONE (09:18)
[2024-04-13 10:59] LABS: ANISOCYTOSIS 1+; MACROCYTOSIS 1+
[2024-04-13] MEDS ORDERED: PEG 3350/NA SULF BICARB CL/KCL 4000 ML SOLN.RECON PO ONE (17:00)
[2024-04-13] MEDS: TBO-FILGRASTIM 300 MCG/0.5 ML DISP.SYRINGE SQ ONE (17:03)
[2024-04-14 07:38] LABS: HEMATOCRIT 24.4 % (32.4-45.2); MCH 28.9 pg (25.7-33.7); MEAN CELL VOLUME 87.6 fl (80-96); PLATELET COUNT 160 10^3/uL (134-434); RBC 2.79 M/mm3 (3.60-5.2); WHITE BLOOD COUNT 13.6 K/mm3 (4.0-10.0)
[2024-04-14 07:42] LABS: PROTHROMBIN TIME (PATIENT) 11.3 SEC (9.7-13.0)
[2024-04-14 07:53] LABS: CHLORIDE 106 mmol/L (98-107); POTASSIUM 3.4 mmol/L (3.5-5.1); SODIUM 138 mmol/L (136-145)
[2024-04-14 07:55] LABS: ALBUMIN 2.3 g/dl (3.4-5.0); CALCIUM 8.4 mg/dL (8.5-10.1)
[2024-04-14 07:56] LABS: ANION GAP 7 mmol/L (4-13); CO2 26 mmol/L (21-32); GLUCOSE,RANDOM 71 mg/dL (74-106)
[2024-04-14 07:58] LABS: CREATININE 0.6 mg/dL (0.55-1.3); MAGNESIUM 1.7 mg/dL (1.8-2.4); SGOT/AST 18 U/L (15-37); SGPT/ALT 13 U/L (13-61)
[2024-04-14 07:59] LABS: PHOSPHOROUS 3.3 mg/dL (2.5-4.9)
[2024-04-14 08:00] LABS: BILIRUBIN,TOTAL 0.3 mg/dL (0.2-1); TOT PROT 5.2 g/dl (6.4-8.2)
[2024-04-14 08:01] LABS: ALK PHOS 63 U/L (45-117)
[2024-04-14 08:07] LABS: BLOOD UREA NITROGEN 2.8 mg/dL (7-18)
[2024-04-14 09:10] LABS: ANISOCYTOSIS 1+; MACROCYTOSIS 1+
[2024-04-14] MEDS: MAGNESIUM 1GM/D5W - 1 GM/100 ML IVPB IVPB ONE (11:50)
[2024-04-14] MEDS: KCL 10 MEQ IVPB 10 MEQ/100 ML INFUS.BAG IVPB SCH ×2 (11:50→15:11)
[2024-04-14] MEDS: BISACODYL 5 MG TABLET.DR (FP) PO ONE (15:13)
[2024-04-14] MEDS: PEG 3350/NA SULF BICARB CL/KCL 4000 ML SOLN.RECON PO ONE (16:29)
[2024-04-15 08:51] LABS: INR 1.03 (0.83-1.09); PROTHROMBIN TIME (PATIENT) 11.6 SEC (9.7-13.0)
[2024-04-15 08:53] LABS: HEMOGLOBIN 8.2 GM/dL (10.7-15.3); MCH 29.9 pg (25.7-33.7); MCHC 34.2 g/dl (32.0-36.0); MEAN CELL VOLUME 87.6 fl (80-96); MEAN PLT VOLUME 7.1 fl (7.5-11.1); PLATELET COUNT 142 10^3/uL (134-434); RBC 2.74 M/mm3 (3.60-5.2); RDW 21.6 % (11.6-15.6); WHITE BLOOD COUNT 9.4 K/mm3 (4.0-10.0)
[2024-04-15 09:05] LABS: POTASSIUM 3.5 mmol/L (3.5-5.1)
[2024-04-15 09:08] LABS: ALBUMIN 2.3 g/dl (3.4-5.0); BLOOD UREA NITROGEN 3.4 mg/dL (7-18); CALCIUM 8.7 mg/dL (8.5-10.1)
[2024-04-15 09:11] LABS: CREATININE 0.7 mg/dL (0.55-1.3); PHOSPHOROUS 3.3 mg/dL (2.5-4.9)
[2024-04-15 09:13] LABS: BILIRUBIN,TOTAL 0.3 mg/dL (0.2-1); TOT PROT 5.1 g/dl (6.4-8.2)
[2024-04-15 10:08] LABS: ANISOCYTOSIS 0; MACROCYTOSIS 0
[2024-04-15] MEDS ORDERED: LOPERAMIDE HCL 2 MG CAPSULE PO PRN (14:23)
[2024-04-15] MEDS: BANATROL PLUS POWDER PACKET PO SCH (21:11)
[2024-04-16 00:52] VITALS: RESP 16
[2024-04-16 06:32] VITALS: BP 139/62; PULSE 77; TEMP 97.5
[2024-04-16 07:47] LABS: BASO % 0.3 % (0-2.0); EOS % 0.4 % (0-4.5); HEMATOCRIT 23.2 % (32.4-45.2); HEMOGLOBIN 7.8 GM/dL (10.7-15.3); LYMPH % 7.9 % (8-40); MCH 29.7 pg (25.7-33.7); MCHC 33.5 g/dl (32.0-36.0); MEAN CELL VOLUME 88.6 fl (80-96); MEAN PLT VOLUME 7.2 fl (7.5-11.1); MONO % 5.7 % (3.8-10.2); NEUT % 85.7 % (42.8-82.8); PLATELET COUNT 136 10^3/uL (134-434); RBC 2.62 M/mm3 (3.60-5.2); RDW 22.2 % (11.6-15.6)
[2024-04-16 08:13] LABS: POTASSIUM 3.9 mmol/L (3.5-5.1)
[2024-04-16 08:24] LABS: ALBUMIN 2.3 g/dl (3.4-5.0); BLOOD UREA NITROGEN 9.2 mg/dL (7-18); CALCIUM 8.3 mg/dL (8.5-10.1)
[2024-04-16 08:25] LABS: MAGNESIUM 1.8 mg/dL (1.8-2.4)
[2024-04-16 08:27] LABS: CREATININE 0.7 mg/dL (0.55-1.3); PHOSPHOROUS 3.4 mg/dL (2.5-4.9)
[2024-04-16 08:28] LABS: BILIRUBIN,TOTAL 0.3 mg/dL (0.2-1); TOT PROT 5.2 g/dl (6.4-8.2)
[2024-04-16] MEDS: BISACODYL 5 MG TABLET.DR (FP) PO ONE (09:08)
[2024-04-16] MEDS: IRON SUCROSE INJECTION 100 MG in SODIUM CHLORIDE 95 ML IVPB ONE (10:22)
== END 2024-04-16 14:25 | disposition home or self-care (01) | DRG 394 ==
LOC: JER 09:55 → JERBED 13:10 → UNDOADMOB 13:10 → INTOOBSV 13:10 → JERBED 13:31 → OBSVTOIN 14:11 → J4S 15:39
PROVIDERS: ADMIT Internal Medicine; ATTEND Internal Medicine
PROC: 0DBB8ZX Excision of Ileum, Via Natural or Artificial Opening Endoscopic, Diagnostic (ICD-10-PCS; 2024-04-15)
PROC: 0DBN8ZX Excision of Sigmoid Colon, Via Natural or Artificial Opening Endoscopic, Diagnostic (ICD-10-PCS; principal; 2024-04-15 11:30)
DX: K52.1 Toxic gastroenteritis and colitis (principal); E44.0 Moderate protein-calorie malnutrition; N39.0 Urinary tract infection, site not specified; Z68.1 Body mass index [BMI] 19.9 or less, adult; M81.0 Age-related osteoporosis without current pathological fracture; E87.6 Hypokalemia; E83.42 Hypomagnesemia; D64.9 Anemia, unspecified; C67.9 Malignant neoplasm of bladder, unspecified; T45.1X5A Adverse effect of antineoplastic and immunosuppressive drugs, initial encounter; R55 Syncope and collapse; I12.9 Hypertensive chronic kidney disease with stage 1 through stage 4 chronic kidney disease, or unspecified chronic kidney disease; N18.9 Chronic kidney disease, unspecified; R91.1 Solitary pulmonary nodule
CPT/HCPCS: 0241U-QW; 36415; 71045-TC-FY; 74177-TC; 80048; 80053; 81003; 82272; 82710; 82728; 82803; 83540; 83550; 83605; 83735; 84100; 84484; 85025; 85610; 85730; 86803; 86850; 86900; 86901; 87040; 87045; 87046; 87086; 87186; 87205; 87209; 87324; 87329; 87389; 87425; 87449; 87798; 88305-TC; 93005; 93010; 93306-TC; 97116-GP; 97161-GP; 99285-25; G0378; J1447; J1756; Q9967